=== PATIENT | male | born 1945 | race Caucasian/White ===

== ENCOUNTER 2017-11-26 08:26 | Inpatient (IN) | payer MEDICARE, OTHER ==
[~2017-11-26] VITALS: Ht 175.3 cm; Wt 77.0 kg
[2017-11-26] VITALS (11 sets, daily range): BP systolic 89–130; BP diastolic 66–90; PULSE 71–150; RESP 17–24; TEMP 97.6–98; O2SAT 95–99
[~2017-11-26 08:26] MED LIST changes: -ASPI-516 CHEW; -ATOR80TA45 PO; -CARV25TA; -DILT31TA PO; -FURO20TA PO; -IPRA0.06; -MONT10TA4 PO; -SPIRCAP INH; -XARE20TA PO; -XOPEAER4 INH
[2017-11-26] MEDS ORDERED: CARV25TA (08:47)
[2017-11-26] MEDS ORDERED: MONT10TA4 PO (08:47)
[2017-11-26] MEDS ORDERED: XOPEAER4 INH (08:47)
[2017-11-26] MEDS ORDERED: IPRA0.06 (08:47)
[2017-11-26] MEDS ORDERED: CLON0.5T PO (08:47)
[2017-11-26] MEDS ORDERED: XARE20TA PO (08:47)
[2017-11-26] MEDS ORDERED: ASPI-516 CHEW (08:47)
[2017-11-26] MEDS ORDERED: SPIRCAP INH (08:47)
[2017-11-26] MEDS ORDERED: ATOR80TA45 PO (08:47)
[2017-11-26] MEDS ORDERED: FURO20TA PO (08:47)
--- NOTE | 2017-11-26 08:51 | PD ---
HPI Chief Complaint: Cardiac Complaint Time Seen by Provider: 08:47 Travel History International Travel<30 days: No Contact w/Intl Traveler<30days: No Traveled to known affect area: No History of Present Illness HPI 71-year-old male patient with history of CAD status post triple CABG, hypertension, currently following up with Dr. Arora, here because he states that he has had fast heart rate for the last few weeks, and they are trying to find out why, he was sent in for a stress test today. However, when they found that his heart rate was in the 150s, they sent him to the ER to be evaluated. He states that he has intermittent dyspnea on exertion, is not complaining of chest pains right now. He denies any other symptoms. Modifying Factors: None Associated Signs & Symptoms: Fast heart rate, and intermittent dyspnea on exertion Risk Factors: None PFSH Past Medical History Hx Anticoagulant Therapy: Yes Arthritis: No Asthma: No Atrial Fibrillation: Yes Autoimmune Disease: No Anxiety: No Depression: No Heart Rhythm Problems: No Cancer: No Cardiac Catheterization: Yes Cardiovascular Problems: Yes High Cholesterol: Yes Chemotherapy: No Chest Pain: No Congestive Heart Failure: No COPD: Yes Cerebrovascular Accident: No Diabetes: No Endocrine: No GERD: No Genitourinary: No Hepatitis: Yes Hiatal Hernia: No Hypertension: Yes Immune Disorder: No Kidney Stones: No Musculoskeletal: No Neurologic: No Psychiatric: No Reproductive: No Respiratory: Yes Migraines: No Radiation Therapy: No Renal Failure: No Seizures: No Sickle Cell Disease: No Sleep Apnea: No Thyroid Disease: No Ulcer: No Tetanus Vaccination: < 5 Years Influenza Vaccination: Yes Past Surgical History Abdominal Surgery: No AICD: No Arteriovenous Shunt: No Body Medical Devices: RIGHT AND LEFT WRIST, LEFT TIBIACARDIAC STENTS Cardiac Surgery: Yes (CARDIAC ABLATION) Coronary Artery Bypass Graft: Yes Coronary Stent: Yes Ear Surgery: No Endocrine Surgery: No Eye Surgery: No Genitourinary Surgery: No Gynecologic Surgery: No Insulin Pump: No Joint Replacement: No Oral Surgery: Yes (TONSILLECTOMY) Pacemaker: No Thoracic Surgery: No Tonsillectomy: Yes Social History Alcohol Use: Yes (3 beers daily) Tobacco Use: No Substance Use: No Allergies-Medications (Allergen,Severity, Reaction): Coded Allergies: albuterol (Unverified Allergy, Severe, pt states gave him a fib, 03/09/17) Reported Meds & Prescriptions Reported Meds & Active Scripts Active Reported Carvedilol 25 Mg Tab 25 Mg BID Atorvastatin (Atorvastatin Calcium) 80 Mg Tab 80 Mg PO HS Montelukast (Montelukast Sodium) 10 Mg Tab 10 Mg PO HS Clonazepam 0.5 Mg Tab 0.5 Mg PO TID Aspirin 81 Mg Chew 81 Mg CHEW DAILY Xopenex Hfa 15 GM Inh (Levalbuterol 15 GM Inh) 45 Mcg/Act Aer 45 Mcg INH Q4HR Shake well before using. (1 puff = 45 mcg) Spiriva Handihaler (Tiotropium Inh) 18 Mcg Cap 18 Mcg INH DAILY 1 capsule = 18 mcg Furosemide 20 Mg Tab 20 Mg PO DAILY Xarelto (Rivaroxaban) 20 Mg Tab 20 Mg PO DAILY Ipratropium [place] 42 Mcg (0.06 %) [place] Review of Systems Except as stated in HPI: all other systems reviewed are Neg Physical Exam Narrative GENERAL: Well-developed elderly male patient currently in mild distress. Awake and oriented 3. SKIN: Focused skin assessment warm/dry. HEAD: Atraumatic. Normocephalic. EYES: Pupils equal and round. No scleral icterus. No injection or drainage. ENT: No nasal bleeding or discharge. Mucous membranes pink and moist. NECK: Trachea midline. No JVD. Supple. CARDIOVASCULAR: Fast and irregularly regular. RESPIRATORY: No accessory muscle use. Mild intermittent wheezing. Breath sounds equal bilaterally. GASTROINTESTINAL: Abdomen soft, non-tender, nondistended. Hepatic and splenic margins not palpable. MUSCULOSKELETAL: No obvious deformities. No clubbing. No cyanosis. No edema. NEUROLOGICAL: Awake and alert. No obvious cranial nerve deficits. Motor grossly within normal limits. Normal speech. PSYCHIATRIC: Appropriate mood and affect; insight and judgment normal. Data Data Last Documented VS Vital Signs Date Time Temp Pulse Resp B/P (MAP) Pulse Ox O2 Delivery O2 Flow Rate FiO2 11/26/17 10:51 148 111/71 11/26/17 08:48 97 Room Air 11/26/17 08:48 97.6 17 Orders Orders Complete Blood Count With Diff (11/26/17 08:47) Comprehensive Metabolic Panel (11/26/17 08:47) B-Type Natriuretic Peptide (11/26/17 08:47) Act Partial Throm Time (Ptt) (11/26/17 08:47) Prothrombin Time / Inr (Pt) (11/26/17 08:47) Ckmb (Isoenzyme) Profile (11/26/17 08:47) Troponin I (11/26/17 08:47) Iv Access Insert/Monitor (11/26/17 08:47) Ecg Monitoring (11/26/17 08:47) Oximetry (11/26/17 08:47) Oxygen Administration (11/26/17 08:47) Chest, Single Ap (11/26/17 08:47) Sodium Chloride 0.9% Flush (Ns Flush) (11/26/17 09:00) Sodium Chlorid 0.9% 500 Ml Inj (Ns 500 M (11/26/17 09:00) Diltiazem Inj (Cardizem Inj) (11/26/17 09:00) Metoprolol Tartrate Inj (Lopressor Inj) (11/26/17 09:30) Dextrose 5% In [place]... W/Amiodarone Inj (11/26/17 10:24) Sodium Chloride 0.9% Flush (Ns Flush) (11/26/17 10:15) Dextrose 5% In [place]... W/Amiodarone Inj (11/26/17 10:09) Sodium Chlor 0.9% (... W/Amiodarone Inj (11/26/17 10:24) Electrocardiogram (11/26/17 08:37) Admit Order (Ed Use Only) (11/26/17 11:00) Admit To Inpatient (11/26/17 ) Vital Signs (Adult) Q4H (11/26/17 11:00) Activity Oob With Assistance (11/26/17 11:00) Refrigerator Cabinetmaker / Telemetry .CONTINUOUS (11/26/17 11:00) Diet Heart Healthy (11/26/17 Lunch) Sodium Chloride 0.9% Flush (Ns Flush) (11/26/17 11:00) Sodium Chloride 0.9% Flush (Ns Flush) (11/26/17 21:00) Acetaminophen (Tylenol) (11/26/17 11:00) Ondansetron Inj (Zofran Inj) (11/26/17 11:00) Basic Metabolic Panel (Bmp) (11/27/17 06:00) Complete Blood Count With Diff (11/27/17 06:00) Resp Oxygen Nirm[place] C Titrat 1-4 L (11/26/17 ) Case Management Consult (11/26/17 11:00) Enoxaparin Inj (Lovenox Inj) (11/26/17 11:00) Scd Bilateral/Knee High MARIAA.BID (11/26/17 11:00) Hector Bilateral/Knee High MARIAA.QSHIFT (11/26/17 11:00) Naloxone Inj (Narcan Inj) (11/26/17 11:00) Docusate Sodium-Senna (Renee-Colace) (11/26/17 21:00) Magnesium Hydroxide Liq (Milk Of Magnesi (11/26/17 11:00) Sennosides (Senokot) (11/26/17 11:00) Bisacodyl Supp (Dulcolax Supp) (11/26/17 11:00) Lactulose Liq (Lactulose Liq) (11/26/17 11:00) Inpatient Certification (11/26/17 ) Consult Cardiology (11/26/17 ) Labs Laboratory Tests Test 11/26/17 08:50 White Blood Count 9.1 TH/MM3 Red Blood Count 4.28 MIL/MM3 Hemoglobin 13.1 GM/DL Hematocrit 38.2 % Mean Corpuscular Volume 89.2 FL Mean Corpuscular Hemoglobin 30.5 PG Mean Corpuscular Hemoglobin Concent 34.2 % Red Cell Distribution Width 14.5 % Platelet Count 256 TH/MM3 Mean Platelet Volume 7.4 FL Neutrophils (%) (Auto) 63.3 % Lymphocytes (%) (Auto) 21.1 % Monocytes (%) (Auto) 7.0 % Eosinophils (%) (Auto) 7.8 % Basophils (%) (Auto) 0.8 % Neutrophils # (Auto) 5.8 TH/MM3 Lymphocytes # (Auto) 1.9 TH/MM3 Monocytes # (Auto) 0.6 TH/MM3 Eosinophils # (Auto) 0.7 TH/MM3 Basophils # (Auto) 0.1 TH/MM3 CBC Comment DIFF FINAL Differential Comment Prothrombin Time 11.2 SEC Prothromb Time International Ratio 1.1 RATIO Activated Partial Thromboplast Time 30.4 SEC Blood Urea Nitrogen 11 MG/DL Creatinine 1.03 MG/DL Random Glucose 98 MG/DL Total Protein 6.4 GM/DL Albumin 2.6 GM/DL Calcium Level 8.9 MG/DL Alkaline Phosphatase 142 U/L Aspartate Amino Transf (AST/SGOT) 21 U/L Alanine Aminotransferase (ALT/SGPT) 24 U/L Total Bilirubin 0.7 MG/DL Sodium Level 139 MEQ/L Potassium Level 4.5 MEQ/L Chloride Level 102 MEQ/L Carbon Dioxide Level 26.9 MEQ/L Anion Gap 10 MEQ/L Estimat Glomerular Filtration Rate 72 ML/MIN Total Creatine Kinase 29 U/L Troponin I LESS THAN 0.02 NG/ML B-Type Natriuretic Peptide 95 PG/ML MDM Medical Decision Making Medical Screen Exam Complete: Yes Emergency Medical Condition: Yes Medical Record Reviewed: Yes Interpretation(s) EKG shows atrial flutter with a rapid ventricular response of 148 bpm. No signs of acute ST elevations or depressions. Laboratory Tests Test 11/26/17 08:50 Red Blood Count 4.28 MIL/MM3 (4.50-5.90) Hematocrit 38.2 % (39.0-51.0) Eosinophils (%) (Auto) 7.8 % (0.0-4.0) Eosinophils # (Auto) 0.7 TH/MM3 (0-0.4) Activated Partial Thromboplast Time 30.4 SEC (24.3-30.1) Albumin 2.6 GM/DL (3.4-5.0) Alkaline Phosphatase 142 U/L (45-117) Estimat Glomerular Filtration Rate 72 ML/MIN (>89) Total Creatine Kinase 29 U/L (39-308) Troponin I LESS THAN 0.02 NG/ML Last 24 hours Impressions Chest X-Ray 11/26/17 0842 Signed Impressions: Service Date/Time: Sunday, November 26, 2017 08:57 - CONCLUSION: Bypass, mild compensated cardiomegaly. James Colón MD FACR Differential Diagnosis Cardiac dysrhythmias versus CHF versus pneumonia versus electrolyte abnormalities versus ACS Narrative Course Patient is an atrial flutter, chest x-ray did not show overt CHF and BNP is normal. Electrolyte panel was fairly unremarkable. Cardiac enzymes are negative. Case was discussed with Dr. Yancey, and he states that he would try amiodarone since the Cardizem is out of stock and metoprolol is not working. He would recommend the patient be admitted to medicine with cardiology consult. Case was then discussed with Dr. Foreman for admission. Diagnosis Primary Impression: Tachyarrhythmia Admitting Information Admitting Physician Requests: Admit Steffen Pereira MD November 26, 2017 08:51
[2017-11-26] MEDS ORDERED: DILTIAZEM HCL 25 MG/5 ML VIAL IV PUSH ONE (09:00)
[2017-11-26] MEDS ORDERED: SODIUM CHLORID 0.9% 500 ML INJ 500 ML IV ONE (09:00)
[2017-11-26] MEDS ORDERED: SODIUM CHLORIDE 0.9% FLUSH 10 ML FLUSH IVF PRN ×2 (09:00→10:15)
[2017-11-26 09:05] LABS: AUTOMATED NEUTROPHIL # 5.8 TH/MM3 (1.8-7.7); BASOPHIL # 0.1 TH/MM3 (0-0.2); BASOPHIL % 0.8 % (0.0-2.0); EOSINOPHIL # 0.7 TH/MM3 (0-0.4); EOSINOPHIL % 7.8 % (0.0-4.0); HEMATOCRIT 38.2 % (39.0-51.0); HEMOGLOBIN 13.1 GM/DL (13.0-17.0); LYMPH % 21.1 % (9.0-44.0); LYMPHOCYTE # 1.9 TH/MM3 (1.0-4.8); MEAN CELL VOLUME 89.2 FL (80.0-100.0); MEAN CORPUSCULAR HEMOGLOBIN 30.5 PG (27.0-34.0); MEAN CORPUSCULAR HGB CONC 34.2 % (32.0-36.0); MEAN PLATELET VOLUME 7.4 FL (7.0-11.0); MONOCYTE # 0.6 TH/MM3 (0-0.9); NEUT % 63.3 % (16.0-70.0); PLATELET COUNT 256 TH/MM3 (150-450); RED BLOOD COUNT 4.28 MIL/MM3 (4.50-5.90); RED CELL DISTRIBUTION WIDTH 14.5 % (11.6-17.2); WHITE BLOOD COUNT 9.1 TH/MM3 (4.0-11.0)
[2017-11-26 09:11] LABS: INTERNATIONAL NORMALIZED RATIO 1.1 RATIO; PROTHROMBIN TIME - PATIENT 11.2 SEC (9.8-11.6)
[2017-11-26 09:14] LABS: ALBUMIN 2.6 GM/DL (3.4-5.0); ALT (GPT) 24 U/L (12-78); AST (GOT) 21 U/L (15-37); BICARBONATE 26.9 MEQ/L (21.0-32.0); BLOOD UREA NITROGEN 11 MG/DL (7-18); CALCIUM 8.9 MG/DL (8.5-10.1); CHLORIDE 102 MEQ/L (98-107); CREATININE 1.03 MG/DL (0.60-1.30); GLOMERULAR FILTRATION RATE 72 ML/MIN (>89); GLUCOSE,RANDOM 98 MG/DL (74-106); SODIUM (NA) 139 MEQ/L (136-145)
[2017-11-26 09:19] LABS: ALKALINE PHOSPHATASE 142 U/L (45-117); TOTAL BILIRUBIN ADULT 0.7 MG/DL (0.2-1.0); TOTAL PROTEIN 6.4 GM/DL (6.4-8.2); TROPONIN I LESS THAN 0.02 NG/ML (0.02-0.05)
--- NOTE | 2017-11-26 09:21 | RADRPT ---
EXAM DATE/TIME: 11/26/2017 08:57 [facility] COMPARISON: CHEST SINGLE AP, May 23, 2015, 13:52. INDICATIONS : Heart palpitations and shortness of breath. MEDICAL HISTORY : Heart. SURGICAL HISTORY : CABG. ENCOUNTER: Initial ACUITY: 1 day PAIN SCORE: 0/10 LOCATION: Bilateral chest FINDINGS: A single view of the chest demonstrates the lungs to be symmetrically aerated without evidence of mas s, infiltrate or effusion. Sternal wires from previous bypass. Mild compensated cardiac megaly. Nish ny skeleton unremarkable. CONCLUSION: Bypass, mild compensated cardiomegaly. James Colón MD FACR on November 26, 2017 at 9:18 Board Certified Radiologist. This report was verified electronically.
[2017-11-26] MEDS ORDERED: METOPROLOL TARTRATE 5 MG/5 ML VIAL IV PUSH ONE (09:30)
[2017-11-26] MEDS ORDERED: AMIODARONE INJ 150 MG in DEXTROSE 5% IN WATER 100ML INJ 97 ML IV ONE ×2 (10:09)
[2017-11-26] MEDS ORDERED: AMIODARONE INJ 450 MG in SODIUM CHLOR 0.9% (EXCEL) INJ 241 ML IV SCH (10:24)
[2017-11-26] MEDS ORDERED: AMIODARONE INJ 450 MG in DEXTROSE 5% IN WATE(EXCEL) INJ 241 ML IV SCH ×2 (10:24)
[2017-11-26] MEDS ORDERED: LACTULOSE SYRUP 20 GM/30 ML CUP PO PRN (11:00)
[2017-11-26] MEDS ORDERED: ONDANSETRON HCL 4 MG/2 ML VIAL IVP PRN (11:00)
[2017-11-26] MEDS ORDERED: BISACODYL 10 MG SUPP RECTAL PRN (11:00)
[2017-11-26] MEDS ORDERED: SODIUM CHLORIDE 0.9% FLUSH 10 ML FLUSH IV FLUSH PRN (11:00)
[2017-11-26] MEDS ORDERED: ENOXAPARIN SODIUM 40 MG/0.4 ML SYRINGE SQ SCH (11:00)
[2017-11-26] MEDS ORDERED: NALOXONE HCL 0.4 MG/ML AMP IV PUSH PRN (11:00)
[2017-11-26] MEDS ORDERED: ACETAMINOPHEN 325 MG TAB PO PRN (11:00)
[2017-11-26] MEDS ORDERED: MAGNESIUM HYDROXIDE SUSP 30 ML CUP PO PRN (11:00)
[2017-11-26] MEDS ORDERED: SENNOSIDES 8.6 MG TAB PO PRN (11:00)
[2017-11-26] MEDS ORDERED: XOPENEX INH SCH (12:00)
[2017-11-26] MEDS: clonazePAM 0.5 MG TAB PO SCH ×2 (12:58→18:00)
[2017-11-26] MEDS ORDERED: RESP: IPRATROPIUM 0.5 MG/2.5 ML NEB NEB ONE (13:00)
[2017-11-26] MEDS ORDERED: VERAPAMIL HCL 5 MG/2 ML VIAL IV PUSH ONE (13:15)
--- NOTE | 2017-11-26 13:16 | MB ---
cc: James Tejeda MD DATE: 11/26/2017 REASON FOR CONSULTATION: Atrial flutter. HISTORY OF PRESENT ILLNESS: The patient is a pleasant 71-year-old gentleman who sees Dr. Yancey who has a history of coronary artery disease and recently diagnosed A. flutter which has had difficult rates. He has been treated with Xarelto and oral carvedilol, but this has not controlled his heart rate. It has apparently been around 150 for the last month or so. He was here for an outpatient stress test, but was referred to the emergency department due to his high heart rate. The patient is asymptomatic denying chest pain, shortness of breath, lightheadedness, dizziness or syncope. PAST MEDICAL HISTORY: 1. Recently diagnosed atrial flutter on Xarelto. 2. Coronary artery disease. CURRENT MEDICATIONS: 1. Aspirin 81 mg daily. 2. Lasix 20 mg daily. 3. Xarelto 20 mg daily. 4. Spiriva. 5. Lipitor 80 mg at bedtime. 6. Coreg 25 mg b.i.d. 7. Klonopin 0.5 mg t.i.d. ALLERGIES: ALBUTEROL. PHYSICAL EXAMINATION: VITAL SIGNS: Afebrile, pulse 141, respiratory rate 17, BP 108/81, sating 97 on room air. GENERAL: A pleasant, obese gentleman in no distress. NECK: No JVD. LUNGS: Clear to auscultation bilaterally. CARDIOVASCULAR: Rapid rate with a regular rhythm. No significant murmurs appreciated. ABDOMEN: Benign. EXTREMITIES: No edema. LABORATORY DATA: White count 9.1, hematocrit 38.2, platelets 256. Sodium 139, potassium 4.5, chloride 102, bicarbonate 26.9, BUN 11, creatinine 1.03, glucose 98. EKG shows atrial flutter with a rate of 150. Chest x-ray shows cardiomegaly. IMPRESSION: 1. Atrial flutter. The patient has difficult to control atrial flutter. I will initiate a verapamil drip given the hospital is currently out of Cardizem and stop his amiodarone which has not been effective thus far. He is already on oral carvedilol and I will add low dose oral Cardizem so that his Verapamil can be weaned off as soon as possible. Hopefully, he can be discharged home in the next day or so, but if his rates continued to be difficult to control throughout the weekend, he may benefit from an A. flutter ablation on Wednesday. Thank you again for the opportunity to participate in this patient's care. MD AZEEM Alfaro/ELYSE , 01:02 PM , 01:15 PM
--- NOTE | 2017-11-26 14:58 | HHI.HP ---
HPI Service [facility] Primary Care Physician Yasmine Awan MD Admission Diagnosis Tachydysrhythmia Diagnoses: Chief Complaint: palpitations Travel History International Travel<30 Days: No Contact w/Intl Traveler <30 Da: No Traveled to Known Affected Are: No History of Present Illness 71-year-old male patient with history of CAD status post triple CABG, hypertension, COPD, anxiety, following up with Dr. Arora cardiology as OP, came to the ED with complaints of fast heart rate for the last few weeks, and they are trying to find out why, he was sent in for a stress test today. However, when they found that his heart rate was in the 150s, they sent him to the ER to be evaluated. He states that he has intermittent dyspnea on exertion , is not complaining of chest pains right now. He denies any other symptoms. Per Dr Yancey start amio drip. Patient however not responding to amio drip and wwas started on verapamil drip as no cardizem available. Review of Systems Except as stated in HPI: all other systems reviewed are Neg Past Family Social History Past Medical History HTN Hyperlipidemia CAD s/p coronary stents COPD Past Surgical History Right wrist surgery Surgery Left leg and left radial fracture after fall from a latter in 2014 Reported Medications Last Impressions Chest X-Ray 11/26/17 0847 Signed Impressions: Service Date/Time: Sunday, November 26, 2017 08:57 - CONCLUSION: Bypass, mild compensated cardiomegaly. James Colón MD FACR Allergies: Coded Allergies: albuterol (Unverified Allergy, Severe, pt states gave him a fib, 03/09/17) Family History Sister with lung problems Mother but doesn't know her medical problems Otherwise family is healthy and says no cardiac problems that runs in his family Social History 3 beers 3 times a week Quit tobacco use 19 month ago No illicit drug use Physical Exam Vital Signs Vital Signs Date Time Temp Pulse Resp B/P (MAP) Pulse Ox O2 Delivery O2 Flow Rate FiO2 11/26/17 13:59 142 17 129/90 (103) 98 11/26/17 13:23 95 21 11/26/17 12:58 144 18 112/75 (87) 99 Room Air 11/26/17 11:58 141 100/68 11/26/17 10:51 148 111/71 11/26/17 08:48 97 Room Air 11/26/17 08:48 97.6 149 17 108/81 (90) 97 Room Air 11/26/17 08:37 149 17 108/81 (90) 97 Room Air 11/26/17 08:28 97.6 150 22 121/81 (94) 96 Physical Exam GENERAL: This is a well-nourished, well-developed patient, in no apparent distress. SKIN: No rashes, ecchymoses or lesions. Cool and dry. HEAD: Atraumatic. Normocephalic. No temporal or scalp tenderness. EYES: Pupils equal round and reactive. Extraocular motions intact. No scleral icterus. No injection or drainage. ENT: Nose without bleeding, purulent drainage or septal hematoma. Throat without erythema, tonsillar hypertrophy or exudate. Uvula midline. Airway patent. NECK: Trachea midline. No JVD or lymphadenopathy. Supple, nontender, no meningeal signs. CARDIOVASCULAR: Tachycardic. Regular rate and rhythm without murmurs, gallops, or rubs. RESPIRATORY: Clear to auscultation. Breath sounds equal bilaterally. No wheezes , rales, or rhonchi. GASTROINTESTINAL: Abdomen soft, non-tender, nondistended. No hepato-splenomegaly , or palpable masses. No guarding. MUSCULOSKELETAL: Extremities without clubbing, cyanosis, or edema. No joint tenderness, effusion, or edema noted. No calf tenderness. Negative Homans sign bilaterally. NEUROLOGICAL: Awake and alert. Cranial nerves II through XII intact. Motor and sensory grossly within normal limits. Five out of 5 muscle strength in all muscle groups. Normal speech. Laboratory Laboratory Tests Test 11/26/17 08:50 White Blood Count 9.1 Red Blood Count 4.28 Hemoglobin 13.1 Hematocrit 38.2 Mean Corpuscular Volume 89.2 Mean Corpuscular Hemoglobin 30.5 Mean Corpuscular Hemoglobin Concent 34.2 Red Cell Distribution Width 14.5 Platelet Count 256 Mean Platelet Volume 7.4 Neutrophils (%) (Auto) 63.3 Lymphocytes (%) (Auto) 21.1 Monocytes (%) (Auto) 7.0 Eosinophils (%) (Auto) 7.8 Basophils (%) (Auto) 0.8 Neutrophils # (Auto) 5.8 Lymphocytes # (Auto) 1.9 Monocytes # (Auto) 0.6 Eosinophils # (Auto) 0.7 Basophils # (Auto) 0.1 CBC Comment DIFF FINAL Differential Comment Prothrombin Time 11.2 Prothromb Time International Ratio 1.1 Activated Partial Thromboplast Time 30.4 Blood Urea Nitrogen 11 Creatinine 1.03 Random Glucose 98 Total Protein 6.4 Albumin 2.6 Calcium Level 8.9 Alkaline Phosphatase 142 Aspartate Amino Transf (AST/SGOT) 21 Alanine Aminotransferase (ALT/SGPT) 24 Total Bilirubin 0.7 Sodium Level 139 Potassium Level 4.5 Chloride Level 102 Carbon Dioxide Level 26.9 Anion Gap 10 Estimat Glomerular Filtration Rate 72 Total Creatine Kinase 29 Troponin I LESS THAN 0.02 B-Type Natriuretic Peptide 95 Result Diagram: 11/26/17 0850 11/26/17 0850 Imaging Last Impressions Chest X-Ray 11/26/17 0847 Signed Impressions: Service Date/Time: Sunday, November 26, 2017 08:57 - CONCLUSION: Bypass, mild compensated cardiomegaly. James Colón MD FACR Caprini VTE Risk Assessment Caprini VTE Risk Assessment: Mod/High Risk (score >= 2) Caprini Risk Assessment Model Point Value = 1 Point Value = 2 Point Value = 3 Point Value = 5 Age 41-60 Minor surgery BMI > 25 kg/m2 Swollen legs Varicose veins or History of unexplained or recurrent spontaneous Oral contraceptives or hormone replacement Sepsis (< 1 month) Serious lung disease, including pneumonia (< 1 month) Abnormal pulmonary function Acute myocardial infarction Congestive heart failure (< 1 month) History of inflammatory bowel disease Medical patient at bed rest Age 61-74 Arthroscopic surgery Major open surgery (> 45 min) Laparoscopic surgery (> 45 min) Malignancy Confined to bed (> 72 hours) Immobilizing plaster cast Central venous access Age >= 75 History of VTE Family history of VTE Factor V Leiden Prothrombin [id number] Lupus anticoagulant Anticardiolipin antibodies Elevated serum homocysteine Heparin-induced thrombocytopenia Other congenital or acquired thrombophilia Stroke (< 1 month) Elective arthroplasty Hip, pelvis, or leg fracture Acute spinal cord injury (< 1 month) Prophylaxis Regimen Total Risk Factor Score Risk Level Prophylaxis Regimen 0-1 Low Early ambulation 2 Moderate Order ONE of the following: *Sequential Compression Device (SCD) *Heparin 5000 units SQ BID 3-4 Higher Order ONE of the following medications: *Heparin 5000 units SQ TID *Enoxaparin/Lovenox 40 mg SQ daily (WT < 150 kg, CrCl > 30 mL/min) *Enoxaparin/Lovenox 30 mg SQ daily (WT < 150 kg, CrCl > 10-29 mL/min) *Enoxaparin/Lovenox 30 mg SQ BID (WT < 150 kg, CrCl > 30 mL/min) AND/OR *Sequential Compression Device (SCD) 5 or more Highest Order ONE of the following medications: *Heparin 5000 units SQ TID (Preferred with Epidurals) *Enoxaparin/Lovenox 40 mg SQ daily (WT < 150 kg, CrCl > 30 mL/min) *Enoxaparin/Lovenox 30 mg SQ daily (WT < 150 kg, CrCl > 10-29 mL/min) *Enoxaparin/Lovenox 30 mg SQ BID (WT < 150 kg, CrCl > 30 mL/min) AND *Sequential Compression Device (SCD) Assessment and Plan Assessment and Plan 71 yo M with h/o HTN, hyperlipidemia, CAD on plavix, COPD came with c/o palpitations. Atrial flutter difficult to control, not responding to meds Started amio drip per Dr Yancey recommendations his cardio Dr. However A flutter difficult to control. Patient is started on verapamil IV drip ( pharmacy is out of cardizem IV drip) as well as cardizem po to wean off verapamil Monitor on telemetry Consult cardiology sales and customer relations rep cruz Crowley recommendations Consider EP evaluation if A flutter difficult to control. Restart home meds as appropriate. DVT ppx SCD/teds/lovenox Discussed Condition With pt, nurse, ER physician Physician Certification 2 Midnight Certification Type: Admission for Inpatient Services Order for Inpatient Services The services are ordered in accordance with Medicare regulations or non- Medicare payer requirements, as applicable. In the case of services not specified as inpatient-only, they are appropriately provided as inpatient services in accordance with the 2-midnight benchmark. Estimated LOS (days): 3 days is the estimated time the patient will need to remain in the hospital, assuming treatment plan goals are met and no additional complications. Post-Hospital Plan: Home Rianna Foreman MD November 26, 2017 14:57
[2017-11-26] MEDS: VERAPAMIL PRN ×2 (15:00→20:53)
[2017-11-26] MEDS: SODIUM CHLORIDE 0.9% PRN ×2 (15:00→20:53)
[2017-11-26] MEDS: CARVEDILOL 12.5 MG TAB PO SCH (20:54)
[2017-11-26] MEDS: DOCUSATE SODIUM 50 MG/SENNA 8.6 MG TAB PO SCH (20:55)
[2017-11-26] MEDS: SODIUM CHLORIDE 0.9% FLUSH 10 ML FLUSH IV FLUSH SCH (20:56)
[2017-11-26] MEDS ORDERED: MONTELUKAST SODIUM 10 MG TAB PO SCH (21:00)
[2017-11-26] MEDS ORDERED: ATORVASTATIN 80 MG TAB PO SCH (21:00)
--- NOTE | 2017-11-26 21:27 | EKG ---
Date Performed: 11/26/2017 Time Performed: 08:37:37 PTAGE: 71 years EKG: ATRIAL FLUTTER/TACHYCARDIA WITH RAPID VENTRICULAR RESPONSE MARKED RIGHT AXIS DEVIATION ST D EVIATION AND MODERATE T-WAVE ABNORMALITY, CONSIDER INFERIOR ISCHEMIA When compared to previous tracin g, patient is now in atrial flutter With 2:1 heart block. ABNORMAL ECG PREVIOUS TRACING : 10/30/2015 09.59.05 DOCTOR: Evangelina Collier Interpretating Date/Time 11/26/2017 16:55:52
[2017-11-27 00:30] VITALS: PULSE 65
[2017-11-27 01:00] VITALS: PULSE 50
[2017-11-27 03:00] VITALS: PULSE 63
[2017-11-27 04:00] VITALS: BP 112/69; PULSE 64; RESP 22; TEMP 97.7; O2SAT 98
[2017-11-27 04:27] LABS: BASOPHIL # 0.1 TH/MM3 (0-0.2); BASOPHIL % 0.7 % (0.0-2.0); EOSINOPHIL # 0.7 TH/MM3 (0-0.4); EOSINOPHIL % 6.7 % (0.0-4.0); HEMOGLOBIN 12.3 GM/DL (13.0-17.0); LYMPH % 22.5 % (9.0-44.0); LYMPHOCYTE # 2.2 TH/MM3 (1.0-4.8); MEAN CELL VOLUME 89.9 FL (80.0-100.0); MEAN CORPUSCULAR HEMOGLOBIN 30.6 PG (27.0-34.0); MEAN CORPUSCULAR HGB CONC 34.1 % (32.0-36.0); MEAN PLATELET VOLUME 7.9 FL (7.0-11.0); MONO % 10.4 % (0.0-8.0); NEUT % 59.7 % (16.0-70.0); PLATELET COUNT 217 TH/MM3 (150-450); RED BLOOD COUNT 4.01 MIL/MM3 (4.50-5.90); RED CELL DISTRIBUTION WIDTH 15.4 % (11.6-17.2)
[2017-11-27 04:53] LABS: BICARBONATE 27.2 MEQ/L (21.0-32.0); CALCIUM 8.5 MG/DL (8.5-10.1); CREATININE 1.28 MG/DL (0.60-1.30)
[2017-11-27 07:00] VITALS: BP 123/83; PULSE 78; RESP 20; TEMP 97.7; O2SAT 98
[2017-11-27] MEDS: CARVEDILOL 12.5 MG TAB PO SCH (08:20)
[2017-11-27] MEDS: clonazePAM 0.5 MG TAB PO SCH (08:20)
[2017-11-27] MEDS: DOCUSATE SODIUM 50 MG/SENNA 8.6 MG TAB PO SCH (08:23)
[2017-11-27] MEDS: SODIUM CHLORIDE 0.9% FLUSH 10 ML FLUSH IV FLUSH SCH (08:23)
[2017-11-27] MEDS ORDERED: FUROSEMIDE 20 MG TAB PO SCH (09:00)
[2017-11-27] MEDS ORDERED: ASPIRIN 81 MG CHEW TAB CHEW SCH (09:00)
[2017-11-27] MEDS ORDERED: RIVAROXABAN 20 MG TAB PO SCH (09:00)
[2017-11-27] MEDS ORDERED: TIOTROPIUM BROMIDE 18 MCG INH INH SCH (09:00)
--- NOTE | 2017-11-27 09:49 | PD.CARD.PN ---
Subjective Subjective Remarks Pt converted to NSR; feels well, he can Objective Medications Current Medications Medications (Trade) Dose Ordered Sig/Christo Route Start Time Stop Time Status Last Admin (NS Flush) 2 ml UNSCH PRN IV FLUSH 11/26/17 11:00 (NS Flush) 2 ml BID IV FLUSH 11/26/17 21:00 11/27/17 08:23 (Tylenol) 650 mg Q4H PRN PO 11/26/17 11:00 11/26/17 20:56 (Zofran Inj) 4 mg Q6H PRN IVP 11/26/17 11:00 (Narcan Inj) 0.4 mg UNSCH PRN IV PUSH 11/26/17 11:00 (Renee-Colace) 1 tab BID PO 11/26/17 21:00 11/26/17 20:55 (Milk Of Magnesia Liq) 30 ml Q12H PRN PO 11/26/17 11:00 (Senokot) 17.2 mg Q12H PRN PO 11/26/17 11:00 (Dulcolax Supp) 10 mg DAILY PRN RECTAL 11/26/17 11:00 (Lactulose Liq) 30 ml DAILY PRN PO 11/26/17 11:00 (Aspirin Chew) 81 mg DAILY CHEW 11/27/17 09:00 11/27/17 08:21 (Lipitor) 80 mg HS PO 11/26/17 21:00 11/26/17 20:53 (Coreg) 25 mg BID PO 11/26/17 21:00 11/27/17 08:20 (KlonoPIN) 0.5 mg TID PO 11/26/17 13:00 11/27/17 08:20 (Lasix) 20 mg DAILY PO 11/27/17 09:00 11/27/17 08:21 (Singulair) 10 mg HS PO 11/26/17 21:00 11/26/17 20:54 (Xarelto) 20 mg DAILY PO 11/27/17 09:00 11/27/17 08:20 (Spiriva Inh) 18 mcg DAILY INH 11/27/17 09:00 Patient Own Medication PT OWN MED: XOPENEX HFA (LEVALBUTER... Q4H INH 11/26/17 12:00 Future Hold Verapamil HCl 50 mg/Sodium Chloride 100 ml @ 15 mls/hr TITRATE PRN .XX 11/26/17 13:15 11/26/17 20:53 Vital Signs / I&O Vital Signs Date Time Temp Pulse Resp B/P (MAP) Pulse Ox O2 Delivery O2 Flow Rate FiO2 11/27/17 04:00 97.7 64 22 112/69 (83) 98 11/27/17 03:00 63 11/27/17 03:00 98 Nasal Cannula 4.00 11/27/17 01:00 50 11/27/17 00:30 65 11/26/17 23:00 98.0 75 24 97/71 (80) 97 11/26/17 23:00 98 Nasal Cannula 4.00 11/26/17 20:44 96 Nasal Cannula 2.00 11/26/17 20:00 97.6 77 20 89/66 (74) 97 11/26/17 19:00 71 11/26/17 15:00 98.0 95 20 122/80 (94) 98 11/26/17 13:59 142 17 129/90 (103) 98 11/26/17 13:23 95 21 11/26/17 12:58 144 18 112/75 (87) 99 Room Air 11/26/17 11:58 141 100/68 11/26/17 10:51 148 111/71 I/O 11/26/17 11/26/17 11/26/17 11/27/17 11/27/17 11/27/17 07:00 15:00 23:00 07:00 15:00 23:00 Intake Total 600 ml 480 ml Output Total 600 ml Balance 600 ml -120 ml Intake Oral 480 ml IV Total 600 ml Output Urine Total 600 ml # Voids 2 2 # Bowel Movements 1 Physical Exam GENERAL: This is a well-nourished, well-developed patient, in no apparent distress. CARDIOVASCULAR: Regular rate and rhythm without murmurs, gallops, or rubs. RESPIRATORY: Clear to auscultation. Breath sounds equal bilaterally. No wheezes , rales, or rhonchi. GASTROINTESTINAL: Abdomen soft, non-tender, nondistended. Normal active bowel sounds MUSCULOSKELETAL: Extremities without clubbing, cyanosis, or edema. NEURO: Alert & Oriented x4 to person, place, time, situation. Moves all ext x4 Laboratory Laboratory Tests Test 11/27/17 03:11 White Blood Count 10.0 TH/MM3 Red Blood Count 4.01 MIL/MM3 Hemoglobin 12.3 GM/DL Hematocrit 36.0 % Mean Corpuscular Volume 89.9 FL Mean Corpuscular Hemoglobin 30.6 PG Mean Corpuscular Hemoglobin Concent 34.1 % Red Cell Distribution Width 15.4 % Platelet Count 217 TH/MM3 Mean Platelet Volume 7.9 FL Neutrophils (%) (Auto) 59.7 % Lymphocytes (%) (Auto) 22.5 % Monocytes (%) (Auto) 10.4 % Eosinophils (%) (Auto) 6.7 % Basophils (%) (Auto) 0.7 % Neutrophils # (Auto) 6.0 TH/MM3 Lymphocytes # (Auto) 2.2 TH/MM3 Monocytes # (Auto) 1.0 TH/MM3 Eosinophils # (Auto) 0.7 TH/MM3 Basophils # (Auto) 0.1 TH/MM3 CBC Comment DIFF FINAL Differential Comment Blood Urea Nitrogen 19 MG/DL Creatinine 1.28 MG/DL Random Glucose 117 MG/DL Calcium Level 8.5 MG/DL Sodium Level 142 MEQ/L Potassium Level 4.8 MEQ/L Chloride Level 106 MEQ/L Carbon Dioxide Level 27.2 MEQ/L Anion Gap 9 MEQ/L Estimat Glomerular Filtration Rate 56 ML/MIN Imaging Last Impressions Chest X-Ray 11/26/17 0853 Signed Impressions: Service Date/Time: Sunday, November 26, 2017 08:57 - CONCLUSION: Bypass, mild compensated cardiomegaly. James Colón MD FACR Assessment and Plan Problem List: (1) Atrial fibrillation ICD Codes: I48.91 - Unspecified atrial fibrillation Plan: Currently nsr; on xarelto; will add low dose long-acting diltiazem Assessment and Plan Ok to d/c home, he has a f/u apt with Dr. Yancey next week. James Tejeda MD November 27, 2017 09:49
[2017-11-27] MEDS ORDERED: DILT31TA PO (09:53)
--- NOTE | 2017-11-27 09:54 | HHI.DS ---
Discharge Summary Admission Date November 26, 2017 at 11:01 Discharge Date: November 27, 2017 Admitting Diagnosis Tachydysrhythmia (1) Atrial flutter ICD Code: I48.92 - Unspecified atrial flutter (2) Atrial fibrillation ICD Code: I48.91 - Unspecified atrial fibrillation Procedures No procedures Brief History - From Admission 71-year-old male patient with history of CAD status post triple CABG, hypertension, COPD, anxiety, following up with Dr. Arora cardiology as OP, came to the ED with complaints of fast heart rate for the last few weeks, and they are trying to find out why, he was sent in for a stress test today. However, when they found that his heart rate was in the 150s, they sent him to the ER to be evaluated. He states that he has intermittent dyspnea on exertion , is not complaining of chest pains right now. He denies any other symptoms. Per Dr Yancey start amio drip. Patient however not responding to amio drip and wwas started on verapamil drip as no cardizem available. CBC/BMP: 11/27/17 0311 11/27/17 0311 Significant Findings Laboratory Tests Test 11/26/17 08:50 11/27/17 03:11 Red Blood Count 4.28 MIL/MM3 (4.50-5.90) 4.01 MIL/MM3 (4.50-5.90) Hematocrit 38.2 % (39.0-51.0) 36.0 % (39.0-51.0) Eosinophils (%) (Auto) 7.8 % (0.0-4.0) 6.7 % (0.0-4.0) Eosinophils # (Auto) 0.7 TH/MM3 (0-0.4) 0.7 TH/MM3 (0-0.4) Activated Partial Thromboplast Time 30.4 SEC (24.3-30.1) Albumin 2.6 GM/DL (3.4-5.0) Alkaline Phosphatase 142 U/L (45-117) Estimat Glomerular Filtration Rate 72 ML/MIN (>89) 56 ML/MIN (>89) Total Creatine Kinase 29 U/L (39-308) Troponin I LESS THAN 0.02 NG/ML Hemoglobin 12.3 GM/DL (13.0-17.0) Monocytes (%) (Auto) 10.4 % (0.0-8.0) Monocytes # (Auto) 1.0 TH/MM3 (0-0.9) Blood Urea Nitrogen 19 MG/DL (7-18) Random Glucose 117 MG/DL (74-106) Imaging Last Impressions Chest X-Ray 11/26/17 0810 Signed Impressions: Service Date/Time: Sunday, November 26, 2017 08:57 - CONCLUSION: Bypass, mild compensated cardiomegaly. James Colón MD FACR PE at Discharge GENERAL: This is a well-nourished, well-developed patient, in no apparent distress. CARDIOVASCULAR: Regular rate and rhythm without murmurs, gallops, or rubs. RESPIRATORY: Clear to auscultation. Breath sounds equal bilaterally. No wheezes , rales, or rhonchi. GASTROINTESTINAL: Abdomen soft, non-tender, nondistended. No hepato-splenomegaly , or palpable masses. No guarding. MUSCULOSKELETAL: Extremities without clubbing, cyanosis, or edema. No joint tenderness, effusion, or edema noted. No calf tenderness. Negative Homans sign bilaterally. NEUROLOGICAL: Awake and alert. Cranial nerves II through XII intact. Motor and sensory grossly within normal limits. Five out of 5 muscle strength in all muscle groups. Normal speech. Pt update on day of discharge Feels much better says she wants to go home. He converted to normal sinus rhythm and is off verapamil drip. Says he wants to go home today no chest pain or shortness of breath no nausea vomiting or diaphoresis. Cleared by cardiology for discharge. Patient to follow-up with his cardiology Dr. Yancey as outpatient Hospital Course 71 yo M with h/o HTN, hyperlipidemia, CAD on plavix, COPD came with c/o palpitations. Atrial flutter difficult to control Started amio drip per Dr Yancey recommendations his cardio Dr. However A flutter difficult to control. 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 Patient improved significantly he is off verapamil drip and heart rate is controlled by p.o. medications. The patient converted to normal sinus rhythm. He is cleared by cardiology for discharge. Patient to follow-up with his cardiology as OP The patient is discharged home in stable condition to follow-up with PCP and consultants as outpatient. Pt Condition on Discharge: Stable Discharge Disposition: Discharge Home Discharge Time: > 30 minutes Discharge Instructions DIET: Follow Instructions for: Heart Healthy Diet Activities you can perform: Regular-No Restrictions Follow up Referrals: Cardiology - 1 Week PCP Follow-up - 2-3 Days New Medications: Diltiazem (Cardizem) 30 Mg Tab 30 MG PO QID for Angina, #120 TAB 0 Refills Continued Medications: Aspirin (Aspirin) 81 Mg Chew 81 MG CHEW DAILY, TAB 0 Refills Atorvastatin (Atorvastatin) 80 Mg Tab 80 MG PO HS for Cholesterol Management, #30 TAB 0 Refills Carvedilol (Carvedilol) 25 Mg Tab 25 MG BID, #60 TAB 0 Refills Clonazepam (Clonazepam) 0.5 Mg Tab 0.5 MG PO TID, #90 TAB 0 Refills Furosemide (Furosemide) 20 Mg Tab 20 MG PO DAILY, #30 TAB 0 Refills Ipratropium Monroe (Ipratropium Monroe) 42 Mcg (0.06 %) Kimper Levalbuterol 15 GM Inh (Xopenex Hfa 15 GM Inh) 45 Mcg/Act Aer 45 MCG INH Q4HR, #1 INHALER 0 Refills Shake well before using. (1 puff = 45 mcg) Montelukast (Montelukast) 10 Mg Tab 10 MG PO HS, #30 TAB 0 Refills Rivaroxaban (Xarelto) 20 Mg Tab 20 MG PO DAILY for Blood Clot Prevention, TAB 0 Refills Tiotropium Inh (Spiriva Handihaler) 18 Mcg Cap 18 MCG INH DAILY for COPD, #30 CAP 0 Refills 1 capsule = 18 mcg Rianna Foreman MD November 27, 2017 09:54
[2017-11-27 11:00] VITALS: BP 144/79; PULSE 84; RESP 20; O2SAT 95
[2017-11-28] MEDS ORDERED: DILTIAZEM-CD 120 MG CAP ER PO SCH (09:00)
== END 2017-11-27 11:24 | disposition home or self-care (01) | DRG 310 ==
LOC: NEPC 08:26 → NEDA 11:01 → HCIS 14:03 → HCVI 14:37
PROVIDERS: ADMIT Hospitalist; ATTEND Hospitalist
DX: I48.92 Unspecified atrial flutter (principal); J44.9 Chronic obstructive pulmonary disease, unspecified; I48.91 Unspecified atrial fibrillation; I10 Essential (primary) hypertension; I25.10 Atherosclerotic heart disease of native coronary artery without angina pectoris; Z79.01 Long term (current) use of anticoagulants; E78.5 Hyperlipidemia, unspecified; Z87.891 Personal history of nicotine dependence; Z95.1 Presence of aortocoronary bypass graft; Z95.5 Presence of coronary angioplasty implant and graft
CPT/HCPCS: 71045; 80048; 80053; 82550; 83880; 84484; 85025; 85610; 85730; 93005; 94664; 96361; 96374; 96375; J0282; J7040; J7050; J7644

== ENCOUNTER → 2017-11-26 | Outpatient (CLI) | payer MEDICARE, OTHER ==
[~2017-11-26] MED LIST: ADVAI500I PO; ASPI-516 CHEW; ASPI81TA82 PO; ATOR80TA45 PO; CARV25TA; CLON.5 PO; CLON0.5T PO; DILT31TA PO; DILT60TA PO; FURO20 PO; FURO20TA PO; HYDR25TA35 PO; IBUP400T20 PO; IPRA0.06; METO50TA PO; MONT10TA2 PO; MONT10TA4 PO; SIMV10 PO; SPIRCAP INH; VITA-13 PO; VITA10002 PO; XARE20TA PO; XOPEAER4 INH; Z.0.WALKERPLAT; Z.0.WHEELELR
== END ==
LOC: HRAD 07:50
PROVIDERS: ATTEND Internal Medicine Cardiovascular Disease
DX: R06.02 Shortness of breath (principal); I25.810 Atherosclerosis of coronary artery bypass graft(s) without angina pectoris

== ENCOUNTER → 2017-12-13 | Outpatient (CLI) | payer MEDICARE, OTHER ==
[~2017-12-13] MED LIST changes: -ADVAI500I PO; +ASPI-516 CHEW; -ASPI81TA82 PO; +ATOR80TA45 PO; +CARV25TA; -CLON.5 PO; +DILT31TA PO; -DILT60TA PO; -FURO20 PO; +FURO20TA PO; -HYDR25TA35 PO; -IBUP400T20 PO; +IPRA0.06; -METO50TA PO; -MONT10TA2 PO; +MONT10TA4 PO; -SIMV10 PO; +SPIRCAP INH; -VITA-13 PO; -VITA10002 PO; +XARE20TA PO; +XOPEAER4 INH; -Z.0.WALKERPLAT; -Z.0.WHEELELR
--- NOTE | 2017-12-13 10:43 | RADRPT ---
EXAM DATE/TIME: 12/13/2017 10:29 [facility] COMPARISON: CHEST SINGLE AP, November 26, 2017, 8:57. INDICATIONS : Short of breath, hear palpitations MEDICAL HISTORY : Chronic obstructive pulmonary disease. SURGICAL HISTORY : CABG. ENCOUNTER: Initial ACUITY: 1 day PAIN SCORE: 1/10 LOCATION: Bilateral chest FINDINGS: Airspace disease with loss of volume has developed in the left lung base. Right lung is clear. Postsurgical changes following CABG are stable. Heart remains normal in size. CONCLUSION: Left basilar airspace disease Status post CABG Xavier Ricardo MD on December 13, 2017 at 10:40 Board Certified Radiologist. This report was verified electronically.
--- NOTE | 2017-12-13 14:36 | ECHRPT ---
Indication: I50.9 CONCLUSIONS Normal left ventricular size. Wall thickness is normal. The left ventricular systolic function is hyperdynamic with an estimated ejection fraction in the ra nge of 65- 70%. Aortic valve sclerosis is present. There is mild tricuspid valve regurgitation. The pulmonary valve is not well visualized. There is a small pericardial effusion present. No hemodynamically significant echocardiographic features were observed (no pre-tamponade physiology). BP: / HR: Rhythm: MEASUREMENTS (Male / Female) Normal Values Technical Quality: 2D ECHO LV Diastolic Diameter PLAX 4.4 cm 4.2 - 5.9 / 3.9 - 5.3 cm LV Systolic Diameter PLAX 3.5 cm IVS Diastolic Thickness 0.9 cm 0.6 - 1.0 / 0.6 - 0.9 cm LVPW Diastolic Thickness 0.6 cm 0.6 - 1.0 / 0.6 - 0.9 cm LV Relative Wall Thickness 0.4 RV Internal Dim ED PLAX 2.6 cm M-MODE Aortic Root Diameter MM 2.9 cm AV Cusp Separation MM 1.6 cm DOPPLER Mitral E Point Velocity 87.0 cm/s Mitral A Point Velocity 74.0 cm/s Mitral E to A Ratio 1.2 TR Peak Velocity 297.0 cm/s TR Peak Gradient 35.3 mmHg FINDINGS LEFT VENTRICLE Normal left ventricular size. Wall thickness is normal. The left ventricular systolic function is hyperdynamic with an estimated ejection fraction in the ra nge of 65- 70%. RIGHT VENTRICLE Normal right ventricular size and systolic function. LEFT ATRIUM The left atrial size is normal. RIGHT ATRIUM The right atrial size is normal. ATRIAL SEPTUM Normal atrial septal thickness without atrial level shunting by limited color doppler interrogation. AORTA The aortic root and proximal ascending aorta are normal in size on limited imaging. MITRAL VALVE Structurally normal mitral valve. No mitral valve stenosis or regurgitation. AORTIC VALVE Aortic valve sclerosis is present. TRICUSPID VALVE There is mild tricuspid valve regurgitation. PULMONARY VALVE The pulmonary valve is not well visualized. VESSELS The inferior vena cava is normal in size. PERICARDIUM There is a small pericardial effusion present. No hemodynamically significant echocardiographic features were observed (no pre-tamponade physiology). Ricky Ingram MD (Electronically Signed) Final Date:13 Dec 2017 14:35
== END ==
LOC: HECH 09:02
PROVIDERS: ATTEND Family Medicine
DX: I50.9 Heart failure, unspecified (principal); J44.9 Chronic obstructive pulmonary disease, unspecified
CPT/HCPCS: 71046; 93306

== ENCOUNTER → 2017-12-18 | Outpatient (CLI) | payer MEDICARE, OTHER ==
--- NOTE | 2017-12-18 11:33 | RADRPT ---
EXAM DATE: 12/18/2017 11:26 AM EDT AGE/SEX: 72 years / Male INDICATIONS: Right leg pain, hit leg on step. CLINICAL DATA: This is the patient's initial encounter. Patient reports that signs and symptoms have been present for 1 week and indicates a pain score of 7/10. MEDICAL/SURGICAL HISTORY: Cardiovascular disease. Chronic obstructive pulmonary disease. . Vei n removal right leg. COMPARISON: No prior [place] exams available for comparison. FINDINGS: Bony structures are intact and in normal alignment. Osseous density is normal. Soft tissues are unre markable. No radiopaque foreign bodies seen. There are some surgical clips in the soft tissues corey racteristic of patient's previous cardiovascular surgery.. CONCLUSION: No acute fracture or joint dislocation. Electronically signed by: Santy Neri MD 12/18/2017 11:31 AM EDT
== END ==
LOC: HRAD 10:48
PROVIDERS: ATTEND Pediatrics
DX: L03.119 Cellulitis of unspecified part of limb (principal)
CPT/HCPCS: 73590